=== PATIENT | male | born 1940 | race Caucasian/White ===

== ENCOUNTER 2018-05-20 18:26 | Inpatient (IN) | payer OTHER ==
[~2018-05-20] VITALS: Ht 170.2 cm; Wt 74.8 kg
[2018-05-20 18:26] VITALS: BP_SYST 194
[2018-05-20 19:09] LABS: BASOPHILS # (AUTO) 0.1 K/uL (0.0-0.2); EOSINOPHILS # (AUTO) 0.2 K/uL (0.0-0.4); EOSINOPHILS % (AUTO) 2.4 % (0.0-4.0); HEMATOCRIT 48.3 % (36-54); HEMOGLOBIN 16.3 g/dL (14.0-18.0); LYMPHOCYTES # (AUTO) 1.9 K/uL (1.0-5.5); LYMPHOCYTES % (AUTO) 25.7 % (20.5-51.5); MEAN CORPUSCULAR HEMOGLOBIN 31 pg (27-31); MEAN CORPUSCULAR HGB CONC 34 % (32-36); MEAN CORPUSCULAR VOLUME 91 fL (79.0-98.0); MONOCYTES # (AUTO) 0.8 K/uL (0.0-1.0); MONOCYTES % (AUTO) 10.4 % (1.7-9.3); NEUTROPHILS # (AUTO) 4.4 K/uL (1.8-7.7); NEUTROPHILS % (AUTO) 59.5 % (40.0-70.0); PLATELET COUNT (AUTO) 205 K/uL (130-430); RED CELL DISTRIBUTION WIDTH 13.4 % (9.0-15.0); WHITE BLOOD COUNT (AUTO) 7.4 K/uL (4.8-10.8)
[2018-05-20 19:19] LABS: ANION GAP 8 (5-15); CALCIUM 9.6 mg/dL (8.4-11.0); CHLORIDE 102 mmol/L (98-107); CREATININE 1.43 mg/dL (0.55-1.30); GLUCOSE 132 mg/dL (70-99); POTASSIUM 3.1 mmol/L (3.5-5.1); SODIUM SERUM 139 mmol/L (136-145); UREA NITROGEN, BLOOD 19 mg/dL (8-21)
[2018-05-20 19:22] LABS: PROTHROMBIN TIME 10.4 SECS (9.5-12.5)
[2018-05-20 19:23] LABS: ALANINE AMINOTRANSFERASE 54 U/L (12-78); ALBUMIN 3.9 g/dL (3.4-4.8); ASPARTATE AMINOTRANSFERASE 27 U/L (10-37); TOTAL BILIRUBIN 1.1 mg/dL (0.0-1.0)
[2018-05-20] MEDS ORDERED: POTASSIUM CHLORIDE 20 MEQ/PKT PACKET PO ONE (19:30)
[2018-05-20] MEDS ORDERED: NACL 0.9% 1,000 ML IV ONE (19:30)
[2018-05-20] MEDS ORDERED: hydrALAZINE HCL 20 MG/ML VIAL IVP ONE (20:15)
[2018-05-20] MEDS ORDERED: PREDNISONE 20 MG TABLET PO ONE (20:15)
[2018-05-20] MEDS ORDERED: HYDR25TA4 PO (20:16)
[2018-05-20] MEDS ORDERED: LIP10 PO (20:16)
[2018-05-20] MEDS: valACYclovir HCL 500 MG TABLET PO ONE ×2 (20:24→20:47)
[2018-05-20] MEDS ORDERED: ACYCLOVIR 400 MG TABLET ONE (20:26)
[2018-05-20] MEDS ORDERED: HYDR-4272 PO (20:37)
[2018-05-20] MEDS ORDERED: TRIA1TAB96 PO (20:37)
[2018-05-20] MEDS ORDERED: TELM80TA2 PO (20:37)
[2018-05-20] MEDS ORDERED: OCUVITE PO (20:37)
[2018-05-20 20:55] VITALS: BP_SYST 175
[2018-05-20 21:15] LABS: BILIRUBIN,URINE NEGATIVE (NEGATIVE); BLOOD, URINE NEGATIVE (NEGATIVE); CLARITY/URINE CLEAR (CLEAR); COLOR,URINE YELLOW (YELLOW); GLUCOSE,URINE NEGATIVE (NEGATIVE); KETONES,URINE NEGATIVE (NEGATIVE); LEUKOCYTE ESTERASE ,URINE NEGATIVE (NEGATIVE); NITRITE, URINE NEGATIVE (NEGATIVE); PH,URINE 6.5 (5.0-8.0); PROTEIN URINE NEGATIVE (NEGATIVE); UROBILINOGEN,URINE 0.2 (0.2-1.0)
[2018-05-20] MEDS ORDERED: ACETAMINOPHEN 325 MG TABLET PO PRN (22:15)
[2018-05-20] MEDS ORDERED: cloNIDine HCL 0.1 MG TABLET PO PRN (22:15)
[2018-05-20] MEDS ORDERED: NACL 0.9% 1,000 ML IV SCH (22:15)
[2018-05-20] MEDS ORDERED: POTASSIUM CHLORIDE 20 MEQ TAB.PRT.SR PO PRN (22:15)
[2018-05-20] MEDS ORDERED: MAGNESIUM SULFATE 50 ML IV PRN (22:15)
[2018-05-20] MEDS ORDERED: ZOLPIDEM TARTRATE 5 MG TABLET PO PRN (22:15)
[2018-05-20] MEDS ORDERED: ONDANSETRON HCL 4 MG/2 ML VIAL IVP PRN (22:15)
[2018-05-20] MEDS ORDERED: MUPIROCIN 2% TOPICAL OINTMENT 22 GM NS PRN (22:15)
[2018-05-20] MEDS ORDERED: DOCUSATE SODIUM 100 MG CAPSULE PO PRN (22:15)
[2018-05-20] MEDS ORDERED: MORPHINE 2 MG/ML INJ. SYRINGE IVP PRN ×2 (22:15)
[2018-05-20] MEDS ORDERED: LORazepam 2 MG/ML VIAL IVP PRN (22:15)
[2018-05-20] MEDS ORDERED: HYDROCHLOROTHIAZIDE 25 MG TABLET (HCTZ) PO SCH (22:30)
[2018-05-20] MEDS ORDERED: LISINOPRIL 10 MG TABLET (PRINIVIL) PO SCH (22:30)
[2018-05-20 23:50] VITALS: BP_SYST 151
[2018-05-21 07:12] LABS: ANION GAP 10 (5-15); CALCIUM 9.6 mg/dL (8.4-11.0); CHLORIDE 106 mmol/L (98-107); CREATININE 1.48 mg/dL (0.55-1.30); GLUCOSE 143 mg/dL (70-99); POTASSIUM 3.7 mmol/L (3.5-5.1); SODIUM SERUM 142 mmol/L (136-145); UREA NITROGEN, BLOOD 18 mg/dL (8-21)
[2018-05-21 07:13] LABS: BASOPHILS # (AUTO) 0.1 K/uL (0.0-0.2); EOSINOPHILS % (AUTO) 0.1 % (0.0-4.0); HEMATOCRIT 48.6 % (36-54); HEMOGLOBIN 15.6 g/dL (14.0-18.0); LYMPHOCYTES # (AUTO) 0.7 K/uL (1.0-5.5); LYMPHOCYTES % (AUTO) 8.6 % (20.5-51.5); MEAN CORPUSCULAR HEMOGLOBIN 29 pg (27-31); MEAN CORPUSCULAR HGB CONC 32 % (32-36); MEAN CORPUSCULAR VOLUME 92 fL (79.0-98.0); MONOCYTES # (AUTO) 0.1 K/uL (0.0-1.0); MONOCYTES % (AUTO) 0.9 % (1.7-9.3); NEUTROPHILS # (AUTO) 7.1 K/uL (1.8-7.7); NEUTROPHILS % (AUTO) 89.4 % (40.0-70.0); PLATELET COUNT (AUTO) 203 K/uL (130-430); RED BLOOD CELL COUNT(AUTO) 5.28 MIL/uL (4.2-6.2); RED CELL DISTRIBUTION WIDTH 13.2 % (9.0-15.0)
[2018-05-21 08:45] VITALS: BP_SYST 137
[2018-05-21] MEDS ORDERED: HEPARIN SODIUM,PORCINE 5000 UNITS/ML VIAL SUBCUT SCH (09:00)
[2018-05-21] MEDS ORDERED: HYDROcodone/ACETAMIN 5-325 MG TAB (NORCO/ VICODIN) PO SCH (09:00)
[2018-05-21] MEDS ORDERED: LISINOPRIL 10 MG TABLET (PRINIVIL) PO SCH (09:00)
[2018-05-21] MEDS ORDERED: HYDROCHLOROTHIAZIDE 25 MG TABLET (HCTZ) PO SCH (09:00)
[2018-05-21] MEDS ORDERED: ATORVASTATIN 10 MG TABLET PO SCH (09:00)
[2018-05-21 11:48] VITALS: BP_SYST 143
[2018-05-21 14:21] VITALS: BP_SYST 137
== END 2018-05-21 15:00 | disposition home or self-care (01) | DRG 73 ==
LOC: SED 18:26 → STU 20:41
PROVIDERS: ADMIT General Practice; ATTEND General Practice
DX: G51.0 Bell's palsy (principal); N17.0 Acute kidney failure with tubular necrosis; I67.2 Cerebral atherosclerosis; J45.909 Unspecified asthma, uncomplicated; Z79.899 Other long term (current) drug therapy; E78.00 Pure hypercholesterolemia, unspecified; E87.5 Hyperkalemia; N18.1 Chronic kidney disease, stage 1; I12.9 Hypertensive chronic kidney disease with stage 1 through stage 4 chronic kidney disease, or unspecified chronic kidney disease; M19.90 Unspecified osteoarthritis, unspecified site; E87.6 Hypokalemia; I70.8 Atherosclerosis of other arteries
CPT/HCPCS: 36415; 70450-TC; 70551; 71045; 80048; 80053; 81003; 83036; 83735-TC; 84484; 85025; 85610-TC; 85730-TC; 93005; 93306; 96361; 96374; 99285; J0360; J1644; J7030; J7512

== ENCOUNTER 2024-05-16 00:41 | Emergency (ER) | payer OTHER ==
[~2024-05-16] VITALS: Ht 167.6 cm; Wt 70.3 kg
[~2024-05-16 00:41] MED LIST: ATOR-449 PO; HYDR-4272 PO; OCUVITE PO; TELM80TA2 PO; TRIA1TAB96 PO
[2024-05-16 01:12] VITALS: BP_SYST 151; PULSE 98; RESP 20; TEMP 98; O2SAT 98
[2024-05-16 03:28] LABS: BASOPHILS % (AUTO) 0.3 % (0.0-2.0); EOSINOPHILS % (AUTO) 0.2 % (0.0-4.0); LYMPHOCYTES % (AUTO) 7.1 % (20.5-51.5); MEAN CORPUSCULAR HEMOGLOBIN 30 pg (27-31); MEAN CORPUSCULAR HGB CONC 33 % (32-36); MEAN CORPUSCULAR VOLUME 89 fL (79.0-98.0); MONOCYTES # (AUTO) 1.7 K/uL (0.0-1.0); MONOCYTES % (AUTO) 12.3 % (1.7-9.3); NEUTROPHILS # (AUTO) 11.2 K/uL (1.8-7.7); NEUTROPHILS % (AUTO) 80.1 % (40.0-70.0); PLATELET COUNT (AUTO) 197 K/uL (130-430); RED BLOOD CELL COUNT(AUTO) 4.71 MIL/uL (4.2-6.2); RED CELL DISTRIBUTION WIDTH 14.8 % (9.0-15.0)
[2024-05-16 03:38] LABS: ANION GAP 7 (5-15); CALCIUM 9.6 mg/dL (8.4-11.0); CARBON DIOXIDE 30 mmol/L (23-29); CHLORIDE 104 mmol/L (98-107); CREATININE 1.75 mg/dL (0.55-1.30); GLUCOSE 136 mg/dL (74-106); POTASSIUM 3.5 mmol/L (3.5-5.1); SODIUM SERUM 141 mmol/L (136-145); UREA NITROGEN, BLOOD 33 mg/dL (8-21)
[2024-05-16 05:21] VITALS: BP_SYST 151; PULSE 98; RESP 20; TEMP 98; O2SAT 98
== END 2024-05-16 05:21 | disposition home or self-care (01) ==
LOC: SED 00:41
DX: R33.9 Retention of urine, unspecified (principal); J45.909 Unspecified asthma, uncomplicated; I10 Essential (primary) hypertension; E78.00 Pure hypercholesterolemia, unspecified
CPT/HCPCS: 36415; 71045; 80048; 85025; 99284